=== PATIENT | female | born 1990 | race Caucasian/White ===

== ENCOUNTER → 2023-09-09 | Outpatient (CLI) | payer BC ==
[2023-09-09 09:30] LABS: BASO # 0.05 K/mm3 (0.02-0.10); EOS # 0.41 K/mm3 (0.04-0.40); EOS % 6.8 % (1.0-5.0); HEMATOCRIT 40.5 % (37.0-47.0); HEMOGLOBIN 13.5 g/dL (12.5-16.0); LYMPH# 1.91 K/mm3 (1.50-4.00); MEAN CELL VOLUME 92 fl (78-100); MEAN CORPUSCULAR HEMOGLOBIN 31 pg (27-31); MEAN CORPUSCULAR HGB CONC 33 g/dL (33-37); MEAN PLATELET VOLUME 9.3 fl (7.4-10.4); MONO # 0.68 K/mm3 (0.20-0.80); NEU # 2.97 K/mm3 (1.40-6.50); PLATELET COUNT 296 K/mm3 (130-400); RED BLOOD COUNT 4.42 M/mm3 (4.10-5.30); RED CELL DISTRIBUTION WIDTH 11.7 % (11.5-14.5)
[2023-09-09 09:42] LABS: ALBUMIN 4.2 g/dL (3.5-5.0)
[2023-09-09 09:43] LABS: CALCIUM 9.7 mg/dL (8.3-10.5)
[2023-09-09 09:45] LABS: TOTAL PROTEIN 7.3 g/dL (6.4-8.3)
[2023-09-09 09:46] LABS: TOTAL BILIRUBIN 0.6 mg/dL (0.2-1.2)
[2023-09-10 12:17] LABS: ANA SCREEN with REFLEX Negative (Negative)
== END ==
LOC: LAB 09:06
PROVIDERS: Family Medicine
DX: M35.9 Systemic involvement of connective tissue, unspecified (principal); I10 Essential (primary) hypertension; E55.9 Vitamin D deficiency, unspecified; E78.5 Hyperlipidemia, unspecified